=== PATIENT | male | born 1955 | race American Indian/Alaskan Native ===

== ENCOUNTER 2017-03-29 20:27 | Inpatient (IN) | payer SELFPAY ==
[2017-03-29 21:06] LABS: Basophils % (Auto) 1.1 % (0.0-1.8); Eosinophils % (Auto) 0.3 % (0.0-4.3); Hematocrit 39.3 % (35.5-45.6); Mean Corpuscular HGB Conc 33 % (32-34); Mean Corpuscular Hemoglobin 31 pg (28-32); Mean Corpuscular Volume 93 fl (84-94); Platelet Count 224 K/mm3 (140-440); Red Blood Count 4.24 M/mm3 (3.65-5.03); Red Cell Distribution Width 16.1 % (13.2-15.2); White Blood Count 4.3 K/mm3 (4.5-11.0)
[2017-03-29 21:21] LABS: Alanine Aminotransferase 122 units/L (7-56); Albumin 4.5 g/dL (3.9-5); Albumin/Globulin Ratio 1.4 %; Alkaline Phosphatase 77 units/L (35-129); Anion Gap 23 mmol/L; BUN/Creatinine Ratio 23; Blood Urea Nitrogen 18 mg/dL (9-20); Calcium 9.3 mg/dL (8.4-10.2); Carbon Dioxide 23 mmol/L (22-30); Chloride 99.5 mmol/L (98-107); Glucose 97 mg/dL (75-100); Lipase 62 units/L (13-60); Potassium 3.8 mmol/L (3.6-5.0); Sodium 142 mmol/L (137-145); Total Protein 7.8 g/dL (6.3-8.2)
[2017-03-30 00:24] LABS: Bilirubin,Urine NEG (Negative); Blood,Urine NEG (Negative); Ketones,Urine NEG (Negative); Leukocyte Esterase,Urine NEG (Negative); Mucus,Urine FEW /HPF; Nitrite,Urine NEG (Negative); Urobilinogen,Urine < 2.0 mg/dL (<2.0); WBC,Urine < 1.0 /HPF (0.0-6.0)
[2017-03-30] MEDS ORDERED: ATIVAN ONE (04:19)
[2017-03-30] MEDS ORDERED: ATIVAN PO ONE ×2 (04:20→07:49)
[2017-03-30 04:25] LABS: Urine Drugs of Abuse Note Disclamer
--- NOTE | 2017-03-30 05:00 | Emergency Department Report ---
<LAQUITA PERERA - Last Filed: 03/30/17 06:19> ED Psych HPI - General Chief Complaint: Medical Clearance Stated Complaint: DETOX Time Seen by Provider: 03/30/17 03:58 Source: patient Mode of arrival: Ambulatory - History of Present Illness Initial Comments: Patient sees it drinks about 8-10 shots of vodka a day. He said like detoxification from his alcohol. His last drink was 24 hours ago. -: Gradual Associated Psychiatric Symptoms: none Quality: constant Improves With: none Worsens With: none Context: recent alcohol abuse Associated Symptoms: denies other symptoms - Related Data Home Medications Medication Instructions Recorded Confirmed Last Taken No Known Home Medications [No 03/30/17 03/30/17 Unknown Reported Home Medications] Allergies Allergy/AdvReac Type Severity Reaction Status Date / Time No Known Allergies Allergy Unverified 03/29/17 20:38 ED Review of Systems ROS: Stated complaint: DETOX Other details as noted in HPI Comment: All other systems reviewed and negative ED Past Medical Hx - Past Medical History Additional medical history: alcholism - Social History Smoking Status: Former Smoker Substance Use Type: Alcohol - Medications Home Medications: Home Medications Medication Instructions Recorded Confirmed Last Taken Type No Known Home Medications [No 03/30/17 03/30/17 Unknown History Reported Home Medications] ED Physical Exam - General Limitations: No Limitations General appearance: alert, in no apparent distress - Head Head exam: Present: atraumatic, normocephalic - Eye Eye exam: Present: normal appearance, PERRL Pupils: Present: normal accommodation - ENT ENT exam: Present: normal exam, normal orophraynx, mucous membranes moist - Neck Neck exam: Present: normal inspection - Respiratory Respiratory exam: Present: normal lung sounds bilaterally. Absent: respiratory distress, wheezes - Cardiovascular Cardiovascular Exam: Present: regular rate, normal rhythm - GI/Abdominal GI/Abdominal exam: Present: soft. Absent: distended, tenderness, guarding - Rectal Rectal exam: Present: deferred - Extremities Exam Extremities exam: Present: normal inspection. Absent: full ROM, tenderness - Back Exam Back exam: Present: normal inspection, full ROM - Neurological Exam Neurological exam: Present: alert, oriented X3. Absent: altered - Psychiatric Psychiatric exam: Present: normal affect, normal mood - Skin Skin exam: Present: warm, dry ED Course Vital Signs 03/29/17 03/30/1717 20:33 01:31 12:52 Temperature 98.8 F 98.5 F 98.4 F Pulse Rate 109 H 91 H 108 H Respiratory 18 20 16 Rate Blood Pressure 138/87 Blood Pressure 138/85 123/73 [Left] O2 Sat by Pulse 100 98 97 Oximetry ED Medical Decision Making - Lab Data Result diagrams: 03/29/17 20:46 03/29/17 20:46 - Medical Decision Making Patient is awaiting mental health evaluation when his alcohol level is less than 200. At which time he will most likely be placed. signed out to Dr Sanches Critical care attestation.: If time is entered above; I have spent that time in minutes in the direct care of this critically ill patient, excluding procedure time. ED Disposition Clinical Impression: Alcohol abuse, Acute, mixed level of activity, alcohol withdrawal delirium, Dehydration Alcohol intoxication Qualifiers: Complication of substance-induced condition: uncomplicated Qualified Code(s): F10.920 - Alcohol use, unspecified with intoxication, uncomplicated Disposition: -09 OP ADMIT IP TO THIS HOSP Condition: Serious Instructions: Abuse of Alcohol (ED) Referrals: PRIMARY CARE, [Primary Care Provider] - 3-5 Days [facility] [Outside] - 3-5 Days <DC KING - Last Filed: 03/30/17 15:49> ED Course - Reevaluation(s) Reevaluation #1: 03/30/17 15:48 On reevaluation the patient's found to have tremors a significant tachycardia heart rate 125, consistent with acute alcohol withdrawal. The patient is given multiple doses of IV Ativan. Ciwa protocol is placed. The patient will be admitted for definitive treatment of alcohol withdrawal. ED Medical Decision Making - Lab Data Result diagrams: 03/29/17 20:46 03/29/17 20:46 ED Disposition Is pt being admited?: Yes Does the pt Need Aspirin: Yes Time of Disposition: 10:36
[2017-03-30] MEDS ORDERED: NACL 0.9% 1000 ML 2,000 ML IV ONE (11:39)
--- NOTE | 2017-03-30 14:03 | Consultation ---
History of Present Illness - Reason for Consult Consult date: 03/30/17 Reason for consult: psychiatric evaluation, alcohol - Chief Complaint Chief complaint: "I want to stop drinking." - History of Present Psychiatric Illness 61 year old AA male seen for psychiatric evaluation in the ER. His family urged him to come to the hospital for concerns with excessive alcohol use. Alcohol level on arrival was 0.33. He expressed to them a desire to stop but could not. His daughter also told him she thinks he needs ongoing treatment for mood. He relapsed one month ago after being sober for several months. He says this time his use escalated. He attended AA meetings and drank afterward. He reports drinking 8-10 2oz shots of vodka daily, starting from the AM to night. Several months ago he quit without medical intervention. He says he experienced visual hallucinations, insomnia, and vomiting. He reports using herbal supplements to detox at that time. He reports a long history of mood symptoms. He says his mood has extremes. He reports times when his mood is very happy, he is more motivated to be creativity , he requires less sleep, has an increase in sex drive and compulsive masturbation and will experience auditory hallucinations. He says he experiences AH with elevated moods and depression. He denies command hallucinations. He reports hearing music and then he produces that music. He reports hearing his name called. He also reports negative themed hallucinations when he is depressed. He reports he has the compulsion to masturbate more during these extremes. He says this has occurred since he was young. Prior to the relapse he was experiencing stress, anxiety, and frustration because he sexual appetite had decreased. He was concerned he would not be able to sexually perform for his on her birthday. He relapsed at her birthday constitution party. He denies suicidal or homicidal ideation. Medications and Allergies Allergies Allergy/AdvReac Type Severity Reaction Status Date / Time No Known Allergies Allergy Unverified 03/29/17 20:38 Home Medications Medication Instructions Recorded Confirmed Last Taken Type No Known Home Medications [No 03/30/17 03/30/17 Unknown History Reported Home Medications] Past psychiatric history - past Psychiatric treatment and history psychiatric treatment history: He took his friend to the doctor. The doctor mentioned to Carrillo that bipolar is likely for him. No previous treatment for mood/psychotic symptoms. No previous rehab. 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) Mental Status Exam - Vital signs Last Vital Signs Temp 98.4 F 03/30/17 12:52 Pulse 108 H 03/30/17 12:52 Resp 16 03/30/17 12:52 BP 123/73 03/30/17 12:52 Pulse Ox 97 03/30/17 12:52 - Exam Orientation: time, place, person Affect: depressed Mood: congruent with affect, other (irritable) Thought content: other (no SI/HI) Thought Process: Intact Perceptions: auditory (non command, chronic) Speech: normal rate and pattern Concentration: focused Motor activity: other (generalized tremors, unsteady gait) Level of consciousness: alert Memory: Intact Sleep Symptoms: Insomnia Appetite: decreased Interaction: cooperative Results Result Diagrams: 03/29/17 20:46 03/29/17 20:46 Abnormal lab results 03/29/17 03/29/17 03/29/17 Range/Units 20:46 20:46 20:46 WBC 4.3 L (4.5-11.0) K/mm3 RDW 16.1 H (13.2-15.2) % Lymph % (Auto) 43.4 H (13.4-35.0) % [place] % (Auto) 13.9 H (0.0-7.3) % AST 90 H (5-40) units/L ALT 122 H (7-56) units/L Lipase 62 H (13-60) units/L Plasma/Serum Alcohol 0.33 H (0-0.07) gm% 03/30/17 Range/Units 06:40 WBC (4.5-11.0) K/mm3 RDW (13.2-15.2) % Lymph % (Auto) (13.4-35.0) % [place] % (Auto) (0.0-7.3) % AST (5-40) units/L ALT (7-56) units/L Lipase (13-60) units/L Plasma/Serum Alcohol 0.12 H (0-0.07) gm% All other labs normal. Assessment and Plan Assessment and plan: Impression: alcohol use disorder, severe, in withdrawal bipolar disorder, current episode depressed with psychotic features Recommendation: Medically supervised detox is recommended. He is at high risk of seizures & DTs. He was informed of the risks of untreated withdrawal. Start ativan 1mg tid and 1mg q8 hours prn systolic b/p over 160, diastolic over 100 or heart rate over 100. Start Seroquel 100mg hs for mood/psychotic symptoms. This should help with insomnia as well. Recommendations were explained to his . Both are in agreement to continue with treatment for detox.
[2017-03-30] MEDS ORDERED: ATIVAN IV ONE (14:10)
[2017-03-30] MEDS ORDERED: BABY ASPIRIN PO ONE (15:49)
[2017-03-30] MEDS: ATIVAN PO SCH (20:05)
[2017-03-30] MEDS ORDERED: AMBIEN PO PRN (20:12)
[2017-03-30] MEDS ORDERED: TYLENOL PO PRN (20:12)
[2017-03-30] MEDS ORDERED: MILK OF MAGNESIA PO PRN (20:12)
[2017-03-30] MEDS ORDERED: ZOFRAN IV PRN (20:12)
[2017-03-30] MEDS ORDERED: PERCOCET 5/325 PO PRN (20:12)
[2017-03-30] MEDS ORDERED: DULCOLAX PR PRN (20:12)
[2017-03-30] MEDS ORDERED: D5NS 1,000 ML IV SCH (21:00)
[2017-03-30] MEDS: LOVENOX SUB-Q SCH (21:40)
[2017-03-30] MEDS: PEPCID PO SCH (22:30)
[2017-03-31] MEDS: 1: FOLVITE 1 MG, INFUVITE 10 ML, VITAMIN B-1 100 MG in NACL 0.9% 1000 ML 988.8 ML 2: NA IV SCH ×3 (03:33→13:35)
[2017-03-31] MEDS ORDERED: NACL 0.9% 1000 ML 1,000 ML ONE (03:46)
[2017-03-31 06:37] LABS: Basophils % (Auto) 0.6 % (0.0-1.8); Eosinophils % (Auto) 0.5 % (0.0-4.3); Hematocrit 36.7 % (35.5-45.6); Hemoglobin 12.5 gm/dl (11.8-15.2); Mean Corpuscular HGB Conc 34 % (32-34); Mean Corpuscular Hemoglobin 31 pg (28-32); Mean Corpuscular Volume 92 fl (84-94); Platelet Count 173 K/mm3 (140-440); Red Blood Count 3.98 M/mm3 (3.65-5.03); Red Cell Distribution Width 15.9 % (13.2-15.2); White Blood Count 3.5 K/mm3 (4.5-11.0)
[2017-03-31 06:43] LABS: Alanine Aminotransferase 100 units/L (7-56); Albumin 3.7 g/dL (3.9-5); Albumin/Globulin Ratio 1.1 %; Alkaline Phosphatase 73 units/L (35-129); Anion Gap 17 mmol/L; BUN/Creatinine Ratio 25; Blood Urea Nitrogen 20 mg/dL (9-20); Calcium 8.3 mg/dL (8.4-10.2); Carbon Dioxide 23 mmol/L (22-30); Chloride 102.5 mmol/L (98-107); Glucose 101 mg/dL (75-100); Potassium 3.6 mmol/L (3.6-5.0); Sodium 139 mmol/L (137-145); Total Protein 7.1 g/dL (6.3-8.2)
--- NOTE | 2017-03-31 07:29 | Event Note ---
Date: 03/30/17 See dictated H/p in reports
[2017-03-31] MEDS: ATIVAN PO SCH ×3 (07:55→23:03)
--- NOTE | 2017-03-31 09:16 | History and Physical Report ---
CHIEF COMPLAINT: Severe ETOH use. HISTORY OF PRESENT ILLNESS: A 61-year-old male comes in for detoxification from alcohol. The patient apparently takes 8-10 shots of vodka. He has been doing it for the past few months. No other past medical history. No shortness of breath, no chest pain. No nausea, no vomiting, no gastritis. No diarrhea. No palpitations. PAST MEDICAL HISTORY: Alcoholism. PAST SURGICAL HISTORY: None. SOCIAL HISTORY: Alcohol, up to 12 vodka shots every day. FAMILY HISTORY: No hypertension, no diabetes. CURRENT MEDICATIONS: None. REVIEW OF SYSTEMS: Other than drinking alcohol on regular basis, review of systems essentially negative. A 14-point review of systems done. PHYSICAL EXAMINATION: GENERAL: Elderly male, cooperative during examination, pleasant. VITAL SIGNS: Blood pressure is 110/68, temperature is 98.2, pulse is 107, respirations are 18, sats are 98%. HEENT: Unremarkable. Pupils equal and reactive. NECK: Supple, no lymphadenopathy, no thyromegaly. LUNGS: Clear to auscultation and percussion. Good air entry. CARDIOVASCULAR SYSTEM: S1, S2 heard. No gallop, no murmur, no rub. Apical impulse in left fifth intercostal space and midclavicular line. ABDOMEN: Soft and benign. No hepatosplenomegaly. No guarding, no rigidity. Hernial orifices are normal. LABORATORY DATA: Significant for a platelet count being normal 224. Hemoglobin is 13.0 and hematocrit is 39.3. Electrolytes are normal. Liver enzymes are elevated. AST is 90, ALT is 122. Urine was negative. Alcohol level was 0.33, which is very high. ASSESSMENT AND PLAN: 1. ETOH intoxication. The patient is medically stable. IV fluids for the time being to decrease his alcohol levels. Once the patient medically cleared, the patient may be discharged back to detox facility like [place] or [place]. 2. Transaminitis secondary to ETOH abuse. We will check acute hepatitis profile to make sure there is no hepatitis B or C.. 3. ETOH dependence. The patient may be discharged on Ativan 0.5 mg four times a day q.i.d. p.r.n. for anxiety. 4. Deep venous thrombosis prophylaxis, Lovenox 40 mg subcutaneous daily. JOB# [id number] WILLIS/GARCÍA
[2017-03-31] MEDS: LOVENOX SUB-Q SCH (10:18)
[2017-03-31] MEDS: PEPCID PO SCH ×2 (10:18→22:53)
--- NOTE | 2017-03-31 12:47 | Progress Note ---
Assessment and Plan - Patient Problems (1) Acute, mixed level of activity, alcohol withdrawal delirium Current Visit: Yes Status: Acute Plan to address problem: Patient on CWA protocol seems to be doing well from alcohol withdrawal. Her tachycardic with stable hemodynamically stable. (2) Alcohol abuse Current Visit: Yes Status: Acute Plan to address problem: Discussed about education alcohol abuse AA patient is well aware of the meetings and what he needs to do to avoid drinking. (3) Dehydration Current Visit: Yes Status: Acute Plan to address problem: Continue IV hydration. Should be able to discharge tomorrow. History Interval history: Patient today able to walk around without much distress. Patient does feel anxious. He remains tachycardic. But calm. Hospitalist Physical - Constitutional Vitals: Temp Pulse Resp BP Pulse Ox 98.7 F 94 H 18 119/75 95 03/31/17 12:01 03/31/17 12:01 03/31/17 12:01 03/31/17 12:01 03/31/17 12:01 - EENT Eyes: Present: PERRL ENT: hearing intact, clear oral mucosa, dentition normal - Neck Neck: Present: supple, normal ROM - Respiratory Respiratory effort: normal Respiratory: bilateral: CTA - Cardiovascular Rhythm: other (tachycardic) Heart Sounds: Present: S1 & S2 - Extremities Extremities: no ischemia, pulses intact, pulses symmetrical Peripheral Pulses: within normal limits - Abdominal General gastrointestinal: soft, non-distended, normal bowel sounds - Psychiatric Psychiatric: appropriate mood/affect, intact judgment & insight, cooperative - Neurologic Neurologic: CNII-XII intact, focal deficits Results - Labs CBC & Chem 7: 03/31/17 06:05 03/31/17 06:05 Labs: Laboratory Last Values WBC 3.5 K/mm3 (4.5-11.0) L 03/31/17 06:05 RBC 3.98 M/mm3 (3.65-5.03) 03/31/17 06:05 Hgb 12.5 gm/dl (11.8-15.2) 03/31/17 06:05 Hct 36.7 % (35.5-45.6) 03/31/17 06:05 MCV 92 fl (84-94) 03/31/17 06:05 MCH 31 pg (28-32) 03/31/17 06:05 MCHC 34 % (32-34) 03/31/17 06:05 RDW 15.9 % (13.2-15.2) H 03/31/17 06:05 Plt Count 173 K/mm3 (140-440) 03/31/17 06:05 Lymph % (Auto) 29.9 % (13.4-35.0) 03/31/17 06:05 [place] % (Auto) 12.5 % (0.0-7.3) H 03/31/17 06:05 Eos % (Auto) 0.5 % (0.0-4.3) 03/31/17 06:05 Baso % (Auto) 0.6 % (0.0-1.8) 03/31/17 06:05 Lymph # 1.1 K/mm3 (1.2-5.4) L 03/31/17 06:05 [place] # 0.4 K/mm3 (0.0-0.8) 03/31/17 06:05 Eos # 0.0 K/mm3 (0.0-0.4) 03/31/17 06:05 Baso # 0.0 K/mm3 (0.0-0.1) 03/31/17 06:05 Seg Neutrophils % 56.5 % (40.0-70.0) 03/31/17 06:05 Seg Neutrophils # 2.0 K/mm3 (1.8-7.7) 03/31/17 06:05 Sodium 139 mmol/L (137-145) 03/31/17 06:05 Potassium 3.6 mmol/L (3.6-5.0) 03/31/17 06:05 Chloride 102.5 mmol/L (98-107) 03/31/17 06:05 Carbon Dioxide 23 mmol/L (22-30) 03/31/17 06:05 Anion Gap 17 mmol/L 03/31/17 06:05 BUN 20 mg/dL (9-20) 03/31/17 06:05 Creatinine 0.8 mg/dL (0.8-1.5) 03/31/17 06:05 Estimated GFR > 60 ml/min 03/31/17 06:05 BUN/Creatinine Ratio 25 % 03/31/17 06:05 Glucose 101 mg/dL (75-100) H 03/31/17 06:05 Hemoglobin A1c 4.8 % (4-6) 03/30/17 21:00 Calcium 8.3 mg/dL (8.4-10.2) L 03/31/17 06:05 Total Bilirubin 0.60 mg/dL (0.1-1.2) 03/31/17 06:05 AST 68 units/L (5-40) H 03/31/17 06:05 ALT 100 units/L (7-56) H 03/31/17 06:05 Alkaline Phosphatase 73 units/L (35-129) 03/31/17 06:05 Total Protein 7.1 g/dL (6.3-8.2) 03/31/17 06:05 Albumin 3.7 g/dL (3.9-5) L 03/31/17 06:05 Albumin/Globulin Ratio 1.1 % 03/31/17 06:05 Lipase 62 units/L (13-60) H 03/29/17 20:46 Urine Color Yellow (Yellow) 03/29/17 23:31 Urine Turbidity Clear (Clear) 03/29/17 23:31 Urine pH 6.0 (5.0-7.0) 03/29/17 23:31 Ur Specific [place] 1.018 (1.003-1.030) 03/29/17 23:31 Urine Protein 30 mg/dl mg/dL (Negative) 03/29/17 23:31 Urine Glucose (UA) Neg mg/dL (Negative) 03/29/17 23:31 Urine Ketones Neg mg/dL (Negative) 03/29/17 23:31 Urine Blood Neg (Negative) 03/29/17 23:31 Urine Nitrite Neg (Negative) 03/29/17 23:31 Urine Bilirubin Neg (Negative) 03/29/17 23:31 Urine Urobilinogen < 2.0 mg/dL (<2.0) 03/29/17 23:31 Ur Leukocyte Esterase Neg (Negative) 03/29/17 23:31 Urine WBC (Auto) < 1.0 /HPF (0.0-6.0) 03/29/17 23:31 Urine RBC (Auto) 1.0 /HPF (0.0-6.0) 03/29/17 23:31 U Epithel Cells (Auto) < 1.0 /HPF (0-13.0) 03/29/17 23:31 Urine Mucus Few /HPF 03/29/17 23:31 Urine Opiates Screen Presumptive negative 03/29/17 23:31 Urine Methadone Screen Presumptive negative 03/29/17 23:31 Ur Barbiturates Screen Presumptive negative 03/29/17 23:31 Ur Phencyclidine Scrn Presumptive negative 03/29/17 23:31 Ur Amphetamines Screen Presumptive negative 03/29/17 23:31 U Benzodiazepines Scrn Presumptive negative 03/29/17 23:31 Urine Cocaine Screen Presumptive negative 03/29/17 23:31 U Marijuana (THC) Screen Presumptive negative 03/29/17 23:31 Drugs of Abuse Note Disclamer 03/29/17 23:31 Plasma/Serum Alcohol 0.12 gm% (0-0.07) H 03/30/17 06:40
[2017-03-31] MEDS ORDERED: VITAMIN B-1 100 MG, FOLVITE 1 MG, INFUVITE 10 ML in NACL 0.9% 1000 ML 1,000 ML IV ONE ×2 (13:29→14:00)
[2017-03-31] MEDS ORDERED: D5NS 1,000 ML IV SCH ×2 (14:00→22:00)
[2017-03-31] MEDS: ATIVAN PO PRN ×2 (16:03→23:02)
--- NOTE | 2017-03-31 18:07 | Progress Note ---
Subjective - Reason for Consult Consult date: 03/31/17 Reason for consult: follow up - Chief Complaint Chief complaint: "My equilibrium is off." 61 year old AA male seen for psychiatric evaluation in the ER. His family urged him to come to the hospital for concerns with excessive alcohol use. Alcohol level on arrival was 0.33. He expressed to them a desire to stop but could not. His daughter also told him she thinks he needs ongoing treatment for mood. He relapsed one month ago after being sober for several months. He says this time his use escalated. He attended AA meetings and drank afterward. He reports drinking 8-10 2oz shots of vodka daily, starting from the AM to night. Several months ago he quit without medical intervention. He says he experienced visual hallucinations, insomnia, and vomiting. He reports using herbal supplements to detox at that time. He reports a long history of mood symptoms. He says his mood has extremes. He reports times when his mood is very happy, he is more motivated to be creativity , he requires less sleep, has an increase in sex drive and compulsive masturbation and will experience auditory hallucinations. He says he experiences AH with elevated moods and depression. He denies command hallucinations. He reports hearing music and then he produces that music. He reports hearing his name called. He also reports negative themed hallucinations when he is depressed. He reports he has the compulsion to masturbate more during these extremes. He says this has occurred since he was young. He reports feeling better today. He is on scheduled and prn ativan for detox. He was admitted to the medical floor. He is resting. He says the detox med helps him sleep. He started seroquel for mood and psychotic symptoms. He says the floor seems slanted when he walks. He reports insomnia. - Exam Orientation: time, place, person Affect: depressed Mood: congruent with affect, other (irritable) Thought content: other (no SI/HI) Thought Process: Intact Perceptions: auditory (non command, chronic) Speech: normal rate and pattern Concentration: focused Motor activity: other (generalized tremors, unsteady gait) Level of consciousness: alert Memory: Intact Sleep Symptoms: Insomnia Appetite: decreased Interaction: cooperative Mental Status Exam - Vital signs Last Vital Signs Temp 99.0 F 03/31/17 15:38 Pulse 85 03/31/17 15:38 Resp 20 03/31/17 15:38 BP 137/101 03/31/17 15:38 Pulse Ox 97 03/31/17 15:38 Assessment and Plan Impression: He complains of problems with his equilibrium alcohol use disorder, severe, in withdrawal bipolar disorder, current episode depressed with psychotic features Recommendation: Continued medically supervised detox is recommended. He is at high risk of seizures & DTs. Ativan 1mg tid was ordered as scheduled on 03/30/2017. Recommend taper. He was informed of the risks of untreated withdrawal. Continue Seroquel 100mg hs for mood/psychotic symptoms. This should help with insomnia as well. Recommendations were explained to his . Both are in agreement to continue with treatment for detox.
[2017-04-01] MEDS: ATIVAN PO PRN (02:59)
[2017-04-01 06:35] LABS: Basophils % (Auto) 0.8 % (0.0-1.8); Eosinophils % (Auto) 1.9 % (0.0-4.3); Hematocrit 35.1 % (35.5-45.6); Mean Corpuscular HGB Conc 34 % (32-34); Mean Corpuscular Hemoglobin 32 pg (28-32); Mean Corpuscular Volume 93 fl (84-94); Platelet Count 157 K/mm3 (140-440); Red Blood Count 3.77 M/mm3 (3.65-5.03); Red Cell Distribution Width 16.1 % (13.2-15.2); White Blood Count 3.3 K/mm3 (4.5-11.0)
[2017-04-01 06:50] LABS: Anion Gap 15 mmol/L; BUN/Creatinine Ratio 20; Blood Urea Nitrogen 14 mg/dL (9-20); Calcium 8.3 mg/dL (8.4-10.2); Carbon Dioxide 24 mmol/L (22-30); Chloride 105.6 mmol/L (98-107); Glucose 106 mg/dL (75-100); Potassium 3.7 mmol/L (3.6-5.0); Sodium 141 mmol/L (137-145)
[2017-04-01] MEDS: ATIVAN PO SCH ×2 (07:57→13:45)
[2017-04-01] MEDS: PEPCID PO SCH (09:07)
[2017-04-01] MEDS: LOVENOX SUB-Q SCH (09:07)
--- NOTE | 2017-04-01 12:07 | Discharge Summary ---
Providers - Providers Date of Admission: 03/30/17 20:12 Date of discharge: 04/01/17 Attending physician: DEREK BISWAS 03/31/17 07:30 Consult to Mental Health [CONS] Routine Reason For Exam: ETOH detox Place consult to:: BRANDYN Notified:: BRANDYN Phone number called:: [phone] Was contact made?: Yes If yes, spoke with:: JAX Time called:: 14:16 Comment:: CONSULT COMPLETED-MAXIMO Primary care physician: TEXTILE CHEMIST Hospitalization Condition: Good Pertinent studies: She is 61-year-old presented with alcohol abuse. Patient showed evidence of withdrawal had psychiatric consult for hallucinations. Patient also had confabulations hallucinations was diagnosed with EtOH withdrawal. Hospital course: 51-year-old male presented with alcohol abuse alcohol withdrawal had a relapse. Came in with each withdrawal psych consult diagnosed with psych psychotic mood disorder. Started on Seroquel. Also started on CIWA protocol after 48 hours patient withdrawal symptoms resolved we'll discharge home with Seroquel daily at bedtime and Ativan. Patient has been told to follow up with primary care physician to be weaned off Ativan and Seroquel. And also follow-up outpatient AA. Patient had done well with AA quite some time ago but had a relapse. His hemoglobin was stable to leave after medical supervised detox. He should no longer tachycardic patient liver enzymes down to normal patient alcohol levels resolved. Disposition: DC-01 TO HOME OR SELFCARE - Discharge Diagnoses (1) Acute, mixed level of activity, alcohol withdrawal delirium Status: Resolved (2) Alcohol abuse Status: Acute Comment: follow up with AA (3) Dehydration Status: Resolved Core Measure Documentation - Palliative Care Palliative Care/ Comfort Measures: Not Applicable - Core Measures Any of the following diagnoses?: none Exam - Constitutional Vitals: Temp Pulse Resp BP Pulse Ox 98.4 F 87 20 139/99 98 04/01/17 08:37 04/01/17 08:37 04/01/17 08:37 04/01/17 08:37 04/01/17 08:37 General appearance: Present: no acute distress, well-nourished - EENT Eyes: Present: PERRL ENT: hearing intact, clear oral mucosa - Neck Neck: Present: supple, normal ROM - Respiratory Respiratory effort: normal Respiratory: bilateral: CTA - Cardiovascular Heart Sounds: Present: S1 & S2. Absent: rub, click - Extremities Extremities: pulses symmetrical, No edema Peripheral Pulses: within normal limits - Abdominal General gastrointestinal: Present: soft, non-tender, non-distended, normal bowel sounds Male genitourinary: Present: normal - Integumentary Integumentary: Present: clear, warm, dry - Musculoskeletal Musculoskeletal: gait normal, strength equal bilaterally - Psychiatric Psychiatric: appropriate mood/affect, intact judgment & insight - Neurologic Neurologic: CNII-XII intact, moves all extremities Plan Activity: no restrictions, fall precautions Weight Bearing Status: Full Weight Bearing Diet: regular Follow up with: [facility] [Outside] - 3-5 Days PRIMARY CARE,MD [Primary Care Provider] - 3-5 Days Prescriptions: Famotidine [Pepcid] 20 mg PO BID #60 tablet LORazepam [Ativan] 1 mg PO TID #90 tablet
[2017-04-01 13:41] VITALS: BP 146/99
== END 2017-04-01 14:00 | disposition home or self-care (01) | DRG 897 ==
LOC: ED 20:27 → EEVIPCON 20:27 → 3A 03-30 20:12
PROVIDERS: ADMIT Internal Medicine; ATTEND Internal Medicine
DX: F10.231 Alcohol dependence with withdrawal delirium (principal); F10.229 Alcohol dependence with intoxication, unspecified; F31.9 Bipolar disorder, unspecified; G47.00 Insomnia, unspecified; E86.0 Dehydration; Z81.1 Family history of alcohol abuse and dependence
CPT/HCPCS: 36415; 80048; 80053; 80307; 80320; 81001; 83036; 83690; 85025; 96361; 96374; 99285; G0480; J1650; J2060; J3411; J7030; J7042